=== PATIENT | male | born 1955 | race Two or more races ===

== ENCOUNTER 2025-01-18 06:17 | Day surgery (SDC) | payer MEDICARE, BC ==
[2025-01-13 09:36] LABS: MEAN PLATELET VOLUME 10.6 FL (7.4-10.4); RED CELL DISTRIBUTION WIDTH 14.3 % (11.5-14.5)
[2025-01-13 09:51] LABS: CREATININE 0.63 MG/DL (0.60-1.10); TOTAL CARBON DIOXIDE 34.1 MMOL/L (24-32); eGFR > 90 ML/MIN
[2025-01-13 09:56] LABS: LARGE PLATELETS FEW; PLATELET ESTIMATE NORMAL
[~2025-01-18] VITALS: Ht 175.3 cm; Wt 98.4 kg
[2025-01-18] MEDS: ceFAZolin 2gm/dext,iso 50mL 50 ML IV ONE (05:30)
[~2025-01-18 06:17] MED LIST: APIX5TAB3 PO; ASCO-134 PO; CANA300T PO; CHOL100046 PO; LOSA50TA64 PO; METF-438 PO; MULT-1085 PO; OMEG-5 PO; ROSU20TA98 PO; SAW PALMETTO; SUPER LYSINE; [UNRECOGNIZED DRUG - OTHER]
[2025-01-18 06:25] VITALS: BP 145/65; PULSE 48; RESP 15; TEMP 97.3; O2SAT 96
[2025-01-18] MEDS: ringers solution, lacted 1,000 ML IV SCH ×2 (06:49→08:35)
[2025-01-18] MEDS ORDERED: BUPIVAcaine/PF 2.5mg/ml (0.25%) 10ml vial ONE (06:57)
[2025-01-18] MEDS ORDERED: LIDOcaine 2% (20mg/ml) 5ml vial ONE (06:57)
[2025-01-18] MEDS ORDERED: fentaNYL/PF 50MCG/1 ML 2ML syringe ONE (08:29)
[2025-01-18] MEDS ORDERED: labetalol 20mg/4ml (5mg/ml) syringe IV PRN (08:35)
[2025-01-18] MEDS ORDERED: hydrALAZINE 20mg/ml inj. IV PRN (08:35)
[2025-01-18] MEDS ORDERED: morphine 4 MG/ML inj SYRINge IV PRN (08:35)
[2025-01-18] MEDS ORDERED: ondansetron/PF 4mg/2ml inj IV PRN (08:35)
[2025-01-18] MEDS ORDERED: HYDROmorphone/PF 0.2 MG/ML SYRINGE IV PRN ×2 (08:35)
[2025-01-18] MEDS ORDERED: acetaminophen 1,000mg/100ml IV 100 ML IV PRN (08:35)
[2025-01-18] MEDS ORDERED: propofol inj 20 ML IV ONE (08:43)
[2025-01-18] MEDS ORDERED: midazolam 1 mg/ML 2ml injection ONE (08:43)
[2025-01-18 08:46] VITALS: BP 125/62; PULSE 74; RESP 16; O2SAT 100
[2025-01-18 08:55] VITALS: BP 95/52; PULSE 54; RESP 17; O2SAT 95
[2025-01-18 09:05] VITALS: BP 99/55; PULSE 68; RESP 15; O2SAT 97
[2025-01-18 09:15] VITALS: BP 118/64; PULSE 52; RESP 18; O2SAT 95
--- NOTE | 2025-01-18 12:48 | OPERATIVE REPORT ---
Operative Report Providers to ~ Date of Procedure: Jan 18, 2025 Pre-Operative Diagnosis: Right wrist carpal tunnel syndrome Post-Operative Diagnosis SAME as PRE-Op Procedure Performed Right wrist open carpal tunnel release Surgeon: Yony Auguste MD Naprapath None Anesthesiologist: Yogesh Castañeda Type of Anesthesia: Other (Local anesthesia with sedation) Findings: Estimated Blood Loss: None Specimen Removed: None Description of Procedure: INDICATIONS: This patient is a 69 year old with right sided carpal tunnel syndrome refractory to conservative treatment. Surgery is indicated for relief of symptoms. Procedure- The risks, benefits, expected results, and possible complications of the planned procedure had been explained to the patient and informed consent obtained. PROCEDURE- The arm was prepped and draped in the usual manner. Local anesthetic was injected proximal to the volar wrist area. An incision was made in the palm ulnar to the thenar crease in line with the ring finger. Blunt dissection was performed through deeper tissues until the transverse carpal ligament was encountered. The carpal tunnel was entered with an incision in line with the skin incision. The nerve was protected and the ligament was released distally and proximally. The forearm fascia proximal to the incision was released using bunt Metzenbaum scissors. The nerve was decompressed at this point. The wound was irrigated and the small bleeders were cauterized. The wound was then closed with 5-O nylon sutures. The tourniquet was released and the hand perfused well. The patient was then taken to the recovery room in stable condition. The patient tolerated the procedure well. Counts repoted as correct: Yes YONY AUGUSTE Jr., MD Jan 18, 2025 12:48
== END 2025-01-18 09:36 | disposition home or self-care (01) ==
LOC: PAS 06:17
PROVIDERS: ATTEND Orthopaedic Surgery Hand Surgery
DX: G56.01 Carpal tunnel syndrome, right upper limb (principal); E11.9 Type 2 diabetes mellitus without complications; E78.00 Pure hypercholesterolemia, unspecified; I10 Essential (primary) hypertension; K76.9 Liver disease, unspecified; I48.92 Unspecified atrial flutter; F12.90 Cannabis use, unspecified, uncomplicated; Z87.891 Personal history of nicotine dependence; Z79.01 Long term (current) use of anticoagulants; Z79.899 Other long term (current) drug therapy; Z86.19 Personal history of other infectious and parasitic diseases; Z79.84 Long term (current) use of oral hypoglycemic drugs
CPT/HCPCS: 36415; 64721; 80053; 82948; 85025; A4215; A6449; J2003; J2250; J2704; J3010; J3490; J7030; J7120; Z7506; Z7512; Z7610; 85008